=== PATIENT | female | born 1975 | race Caucasian/White ===

== ENCOUNTER 2019-02-27 15:09 | Outpatient (CLI) | payer SELFPAY ==
[2019-02-27 15:58] LABS: HCT 45.5 % (36.0-46.0); HGB 15.6 g/dL (12.0-15.5); Mean Corp. HGB Concentration 34.3 g/dL (32.0-36.0); Mean Corpuscular Volume 87.5 fL (80-95); Mean Platelet Volume 10.3 fL (8.0-11.0); Platelet Count 311 x1000/uL (130-400); RBC Distribution Width 12.9 % (11.7-14.6); White Blood Cell Count 11.31 k/cumm (4.4-10.8)
[2019-02-27 16:41] LABS: ALT 21 U/L (14-59); AST 13 U/L (15-37); Albumin 3.7 g/dL (3.4-5.0); Alkaline Phosphatase 75 U/L (46-116); Anion Gap 6.1 mmol/L (3-11); BUN 19 mg/dL (7-18); Bilirubin, Total 0.5 mg/dL (0.2-1.0); CO2 33.9 mmol/L (21.0-32.0); CREATININE 0.69 mg/dL (0.55-1.02); Calcium 9.5 mg/dL (8.5-10.1); Calculated LDL 147 mg/dL; Chloride 97 mmol/L (98-107); Cholesterol 213 mg/dL (50-200); Glucose 109 mg/dL (70-100); HDL Cholesterol 50 mg/dL (40-60); Sodium 137 mmol/L (136-145); Total Protein 7.2 g/dL (6.4-8.2); Triglyceride 84 mg/dL (30-150)
== END 2019-02-27 15:29 ==
PROVIDERS: PCP Nurse Practitioner; Visit Provider Nurse Practitioner
DX: I10 Essential (primary) hypertension (principal)
CPT/HCPCS: 36415; 80053; 80061; 85027

== ENCOUNTER 2019-04-04 12:16 | Emergency (ER) | payer SELFPAY ==
[2019-04-04 12:21] VITALS: BP 122/92; PULSE 82; RESP 16; TEMP 36.2; O2SAT 99
--- NOTE | 2019-04-04 12:33 | DI.RAD_ITS ---
EXAM: XR HAND LT COMPLETE CLINICAL HISTORY: left posterior hand pain TECHNIQUE: COMPARISON: LEFT HAND COMPLETE from 10/11/2017 FINDINGS: Three views were obtained. No bony or soft tissue abnormality seen. IMPRESSION:
--- NOTE | 2019-04-04 12:33 | W.ED.GENAD ---
Discharge Plan Disposition Patient Disposition: HOME Condition: Stable Discharge Details Chief Complaint: Vascular Clinical Impression: Ganglion cyst, Raynaud phenomenon Primary Care Provider: Ai Curry ED Provider: Anthony Mike Home Meds and New Rx's Prescriptions: New amlodipine 5 mg tablet 5 mg PO DAILY PRN (Reason: cool hands/raynauds) Qty: 14 RF: 0 Continued esomeprazole magnesium [Nexium 24HR] 20 mg capsule,delayed release(DR/EC) 20 mg PO DAILY RF: 0 chlorthalidone 25 mg tablet 25 mg PO DAILY Qty: 90 RF: 3 buprenorphine-naloxone 12-3 mg film 1 film SL DAILY MDD 12mg Qty: 28 RF: 2 albuterol sulfate [Proventil HFA] 6.7 GM HFA aerosol inhaler 1 - 2 puff Inhalation Q6H PRN Qty: 1 RF: 12 lisinopril 40 mg tablet 40 mg PO DAILY Qty: 90 RF: 0 ibuprofen 400 mg Tablet 400 mg PO PRN PRNRF: 0 Discharge Instructions Instructions: Raynaud Disease (ED) Additional Instructions: follow up with your primary care provider within 1-2 weeks if symptoms continue if you have severe worsening pain or your hand becomes purple/blue return to the emergency department Medical Decision Making 44 yo female comes in with nontraumatic right posterior hand pain since yesterday without fevers, chills, rashes. She states she noticed a lump in posterior mid hand that was painful yesterday and continues today and felt her fingers were cold today in left hand so came here. She does have what feels to be a ganglion cyst in mid posterior hand that is not fluctuant or warm to touch and is about 1cm in diameter. All of her fingers are cool to touch with no skin changes, normal sensation and normal radial and ulnar pulses, suspect raynauds, given normal cap refill, no skin changes and normal radial and ulnar pulses doubt arterial occlusion and has no pain outside of the likely sebaceous cyst. Will xray to see if there are any visible bone deformities and also give a dose of a vasodilator to help with likely raynauds pt's xray unremarkable and hand now warm and still normal pulses. will d/c and advised f/u with pcp and return precautions given Differential Diagnosis Differential Diagnosis: raynauda, sebaceous cyst Imaging Data Radiologic Study: Attestation: I personally reviewed and interpreted this imaging study as follows: Imaging: X-Ray Radiologist's impression: no acute findings HPI General Mode of arrival: ambulatory. Date/Time Provider Initiated Documentation: 04/04/19 12:18. Limitations to Documentation: no limitations. Information obtained by: patient. History of Present Illness 44 year old F presents to the emergency department with the chief complaint of left hand pain, described as moderate, Patient reports no radiation. Patient started experiencing this day(s) (1) and it has been constant. No relieving factors improve symptom(s), No exacerbating factors reported . Patient notes no other symptoms.. Related Data Home Medications Medication Instructions Recorded Confirmed albuterol sulfate [Proventil HFA] 1 - 2 puff INHALATION Q6H PRN #1 05/24/17 04/04/19 inhaler esomeprazole magnesium 20 mg 20 mg PO DAILY 02/28/18 04/04/19 capsule,delayed release lisinopril 40 mg tablet 40 mg PO DAILY #90 tab-cap 01/31/19 04/04/19 buprenorphine 12 mg-naloxone 3 mg 1 film SL DAILY #28 each MDD 12mg 02/28/19 04/04/19 sublingual film chlorthalidone 25 mg tablet 25 mg PO DAILY #90 tab-cap 02/28/19 04/04/19 amlodipine 5 mg PO DAILY PRN #14 tab 04/04/19 ibuprofen 400 mg PO PRN PRN 04/04/19 04/04/19 Previous Rx's Medication Instructions Recorded albuterol sulfate [Proventil HFA] 1 - 2 puff INHALATION Q6H PRN #1 05/24/17 inhaler lisinopril 40 mg tablet 40 mg PO DAILY #90 tab-cap 01/31/19 buprenorphine 12 mg-naloxone 3 mg 1 film SL DAILY #28 each MDD 12mg 02/28/19 sublingual film chlorthalidone 25 mg tablet 25 mg PO DAILY #90 tab-cap 02/28/19 amlodipine 5 mg PO DAILY PRN #14 tab 04/04/19 Allergies Allergy/AdvReac Type Severity Reaction Status Date / Time No Known Allergies Allergy Verified 02/28/19 11:30 General Stated Complaint: Vascular JAMAL: 4 Review of Systems All systems reviewed & are unremarkable except as noted in HPI and below Constitutional Constitutional: Denies chills, Denies fever(s) and Denies weakness Cardiovascular Cardiovascular: Denies chest pain and Denies dyspnea Respiratory Respiratory: Denies dyspnea Gastrointestinal Gastrointestinal: Denies abdominal pain, Denies nausea and Denies vomiting Neurologic Neurologic: Denies weakness [facility] Social History Smoking/Tobacco Use Status: Current every day Quit status: considering quitting Alcohol Intake: never Drug use: Current Sobriety Household members: children Number of Children: 2 Communication Needs: None Current gender identity: female What type of physical activity do you participate in: none Seatbelt use: always 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 Working smoke detector in home: Yes Carbon monox detector in home: Yes Do you feel safe at home: Yes Do you feel safe in your relationship?: Yes Exam Const General: no acute distress Orientation: alert HENMT Head: normal to inspection Ears: external ears normal General nose exam: external nose normal Mouth: moist mucous membranes Eyes General: appearance normal, both eyes and all related structures Neck Neck: normal visual inspection Resp Effort & Inspection: normal respiratory effort and able to speak in complete sentences Cardio Rate: regular rate Skin General skin exam: no rashes or lesions noted Neuro General: alert and oriented x3 Extrem General: full ROM and normal capillary refill Psych Mental Status: mental status grossly normal Course Vital Signs Vital signs: Vital Signs Temperature 36.2 C L 04/04/19 12:21 Pulse 82 04/04/19 12:21 Respiratory Rate 16 04/04/19 12:21 Blood Pressure 122/92 H 04/04/19 12:21 Pulse Oximetry 99 04/04/19 12:21 Temperature 36.2 C L 04/04/19 12:21 Temperature Source Temporal Artery Scan 04/04/19 12:21 Pulse 82 04/04/19 12:21 Respiratory Rate 16 04/04/19 12:21 Respiratory Effort 04/04/19 12:28 Blood Pressure 122/92 H 04/04/19 12:21 Blood Pressure Position Sitting 04/04/19 12:21 Pulse Oximetry 99 04/04/19 12:21 Oxygen Delivery Method Room Air 04/04/19 12:21 Oxygen Flow Rate 0 04/04/19 12:21
[2019-04-04] MEDS: amLODIPine 5 MG TAB PO (12:39)
== END 2019-04-04 13:24 | disposition home or self-care (01) ==
PROVIDERS: Emergency Provider Emergency Medicine; PCP Nurse Practitioner
DX: M67.441 Ganglion, right hand (principal); I73.00 Raynaud's syndrome without gangrene; I10 Essential (primary) hypertension
CPT/HCPCS: 99283; 73130

== ENCOUNTER 2020-01-16 01:02 | Outpatient (CLI) | payer SELFPAY ==
--- NOTE | 2020-01-16 11:43 | DI.RAD_ITS ---
EXAM: XR CHEST 2V PA LATERAL CLINICAL HISTORY: Fever, dyspnea, productive cough,UPPER RESP DISEASE,J39.9 TECHNIQUE: 2D digital imaging was performed. COMPARISON: No exams were available for comparison FINDINGS: The heart size is normal. There are patchy increased densities in the right middle lobe consistent w ith pneumonia. The remainder of the lung mccullough are clear. No effusion is seen. IMPRESSION: Right middle lobe pneumonia.
== END 2020-01-16 01:22 ==
PROVIDERS: PCP Nurse Practitioner; Visit Provider Family Medicine
DX: J18.9 Pneumonia, unspecified organism (principal); J39.9 Disease of upper respiratory tract, unspecified
CPT/HCPCS: 71046

== ENCOUNTER 2020-01-18 07:43 | Outpatient (CLI) | payer SELFPAY ==
[2020-01-20 23:06] LABS: Patient Race White; SARS-CoV-2 RNA Undetected (Undetected); SARS-CoV-2 Specimen Source Nasopharynx
== END 2020-01-18 08:03 ==
PROVIDERS: PCP Nurse Practitioner; Visit Provider Family Medicine
DX: Z11.59 Encounter for screening for other viral diseases (principal)
CPT/HCPCS: U0003

== ENCOUNTER 2020-09-17 03:08 | Outpatient (CLI) | payer SELFPAY ==
[2020-09-17 12:11] LABS: HCT 39.1 % (36.0-46.0); HGB 12.8 g/dL (11.2-15.7); MCH 30.5 pg (27.0-33.0); MCHC 32.7 % (32.0-36.0); MCV 93.1 fL (80-95); MPV 9.7 fL (8.0-11.0); Platelet Count 318 10^3/uL (130-400); RDW 13.9 % (11.7-14.6); RDW-SD 46.2 fL; WBC 7.35 10^3/uL (4.4-10.8)
[2020-09-17 13:36] LABS: ALT 67 U/L (14-59); AST 80 U/L (15-37); Albumin 3.3 g/dL (3.4-5.0); Alkaline Phosphatase 77 U/L (46-116); Anion Gap 7.7 mmol/L (3-11); BUN 5 mg/dL (7-18); Bilirubin, Total 0.7 mg/dL (0.2-1.0); CO2 31.3 mmol/L (21.0-32.0); CREATININE 0.9 mg/dL (0.55-1.02); Calcium 9.2 mg/dL (8.5-10.1); Calculated LDL 139 mg/dL (<100); Chloride 101 mmol/L (98-107); Cholesterol 211 mg/dL (<200); Ferritin 29 ng/mL (8-252); Glucose 121 mg/dL (74-106); HDL Cholesterol 48 mg/dL (40-60); Sodium 140 mmol/L (136-145); Total Protein 6.8 g/dL (6.4-8.2); Triglyceride 120 mg/dL (<150); Vitamin B12 656 pg/mL (193-986)
== END 2020-09-17 03:09 | disposition home or self-care (01) ==
PROVIDERS: PCP Nurse Practitioner; Visit Provider Nurse Practitioner
DX: I10 Essential (primary) hypertension (principal); R53.83 Other fatigue; R63.5 Abnormal weight gain
CPT/HCPCS: 36415; 80053; 80061; 85027; 82607; 82728; 84443

== ENCOUNTER 2021-02-18 14:31 | Emergency (ER) | payer SELFPAY ==
[2021-02-18] VITALS (22 sets, daily range): BP systolic 149–180; BP diastolic 95–109; PULSE 75–91; RESP 1–24; TEMP 36.7–37.3; O2SAT 82–99
--- NOTE | 2021-02-18 15:15 | RT.EKG_ITS ---
APPROVED REPORT Exam: Resting ECG Reason for Exam: shortness of breath Patient Location: E HR:75 bpm ECG Measurements Heart Rate 75 AXIS WY 176 P -12 QRSd 81 QRS 18 QT 461 T 56 QTc 517 Conclusion Sinus rhythm...normal P axis, V-rate 60- 99 Prolonged QT interval...QTc >510mS
--- NOTE | 2021-02-18 15:17 | W.ED.GENAD ---
Discharge Plan Disposition Patient Disposition: HOME Condition: Stable Discharge Details Clinical Impression: Swelling, Shortness of breath Primary Care Provider: Ai Curry ED Provider: Anthony Mike Home Meds and New Rx's Prescriptions: New prednisone 20 mg tablet 60 mg PO DAILY 4 Days Qty: 12 RF: 0 furosemide [Lasix] 20 mg tablet 20 mg PO DAILY Qty: 14 RF: 0 Continued esomeprazole magnesium [Nexium 24HR] 20 mg capsule,delayed release(DR/EC) 20 mg PO DAILY RF: 0 albuterol sulfate [Proventil HFA] 90 mcg/actuation HFA aerosol inhaler 1 - 2 puff Inhalation Q6H PRN Qty: 1 RF: 12 lisinopril 40 mg tablet 40 mg PO DAILY Qty: 90 RF: 3 fluoxetine 20 mg capsule 20 mg PO DAILY Qty: 90 RF: 3 metformin 500 mg tablet extended release 24hr 1,000 mg PO DAILY Qty: 60 RF: 3 buprenorphine-naloxone 12-3 mg film 1 film SL DAILY MDD 12mg Qty: 28 RF: 2 chlorthalidone 25 mg tablet 25 mg PO DAILY Qty: 90 RF: 3 ibuprofen 400 mg Tablet 400 mg PO PRN PRNRF: 0 Discharge Instructions Instructions: Hypokalemia (ED), COPD (Chronic Obstructive Pulmonary Disease) (ED) Additional Instructions: Your blood work showed a mild low potassium otherwise no new concerning findings. 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 She denies chest pain, headaches, cough, n/v, abdominal pain, denies any new medications. She arrives hypoxic in the 80's on room air which is new for her, 98% on nasal cannula. She has diffuse wheezing in both lungs on both sides, no abdominal tenderness. She has pitting edema of the hands, face and lower legs, no calf tenderness. Given presentation concern for possible acute renal failure, chf, and possible nephrotic syndrome, will obtain labs and cxr. Her lung exam could be due to pulmonary edema but given smoking history will trial neb and steroids and reassess. No chest pain/pressure or pleuritic pain so doubt pe or acs. labs with mild hypokalemia, oral potassium ordered. Still remains hypoxic, given this feel cta for pe to rule out pe indicated and has normal renal function and reassuring urine protein to creatinine ratiounlikely nephrotic syndrome and no proteinuria to suggest gluomerulonephritis pt now off oxygen and is in the mid 90's, no acute findings on cta, has elevated right hemidiaphragm and some atelectasis. She feels significantly better and lung exam only has mild apical wheezing bilaterally. Given reassuring labs and imaging and now not requiring o2 feel she is stable for outpatient management. Will d/c home and start prednisone and have her f/u with pcp, return precautions given. Will also start her on low dose lasix to help with her extremity edema pt was also advised to have BP rechecked with pcp as was mildly elevated here, 150/70 on last check when I was reviewing plan with her Differential Diagnosis Differential Diagnosis: nephrotic syndrome, chf, kourtney Lab Data Lab results reviewed: Yes I reviewed the patient's lab results. ECG Data Attestation: I personally reviewed and interpreted this ECG (s) as follows: Prior ECG tracings: not available for review Interpretation: sinus rhythm, rate of 75, no acute st t wave ischemic findings HPI General Mode of arrival: ambulatory. Date/Time Provider Initiated Documentation: 02/18/21 14:53. Limitations to Documentation: no limitations. Information obtained by: patient. History of Present Illness 45 year old F presents to the emergency department with the chief complaint of swelling of hands and feet, described as moderate, Patient reports no radiation. and it has been constant. No relieving factors improve symptom(s), No exacerbating factors reported . Patient notes shortness of breath and weakness. Patient did receive the following treatments prior to arrival, none Related Data Home Medications Medication Instructions Recorded Confirmed esomeprazole magnesium 20 mg 20 mg PO DAILY 02/28/18 02/18/21 capsule,delayed release ibuprofen 400 mg PO PRN PRN 04/04/19 02/18/21 albuterol sulfate 90 mcg/actuation 1 - 2 puff INHALATION Q6H PRN #1 05/23/19 02/18/21 aerosol inhaler inhaler chlorthalidone 25 mg tablet 25 mg PO DAILY #90 tab-cap 03/24/20 02/18/21 lisinopril 40 mg tablet 40 mg PO DAILY #90 tab-cap 04/21/20 02/18/21 buprenorphine 12 mg-naloxone 3 mg 1 film SL DAILY #28 each MDD 12mg 12/02/20 02/18/21 sublingual film fluoxetine 20 mg capsule 20 mg PO DAILY #90 cap 12/02/20 02/18/21 metformin 500 mg tablet,extended 1,000 mg PO DAILY #60 tab 12/02/20 02/18/21 release 24hr furosemide [Lasix] 20 mg PO DAILY #14 tab 02/18/21 prednisone 60 mg PO DAILY 4 Days #12 tab 02/18/21 Previous Rx's Medication Instructions Recorded albuterol sulfate 90 mcg/actuation 1 - 2 puff INHALATION Q6H PRN #1 05/23/19 aerosol inhaler inhaler chlorthalidone 25 mg tablet 25 mg PO DAILY #90 tab-cap 03/24/20 lisinopril 40 mg tablet 40 mg PO DAILY #90 tab-cap 04/21/20 buprenorphine 12 mg-naloxone 3 mg 1 film SL DAILY #28 each MDD 12mg 12/02/20 sublingual film fluoxetine 20 mg capsule 20 mg PO DAILY #90 cap 12/02/20 metformin 500 mg tablet,extended 1,000 mg PO DAILY #60 tab 12/02/20 release 24hr furosemide [Lasix] 20 mg PO DAILY #14 tab 02/18/21 prednisone 60 mg PO DAILY 4 Days #12 tab 02/18/21 Allergies Allergy/AdvReac Type Severity Reaction Status Date / Time No Known Allergies Allergy Verified 02/18/21 16:41 General Stated Complaint: GenMedical JAMAL: 3 Review of Systems All systems reviewed & are unremarkable except as noted in HPI and below Constitutional Constitutional: Denies chills, Denies fever(s) and Denies weakness Cardiovascular Cardiovascular: Denies chest pain Respiratory Respiratory: Denies cough Gastrointestinal Gastrointestinal: Denies abdominal pain, Denies nausea and Denies vomiting Neurologic Neurologic: Denies weakness Psychiatric Psychiatric: Denies depression [facility] Medical History (Updated 02/18/21 @ 19:09 by Anthony Mike MD) Fatigue HTN (hypertension), benign Menstrual irregularity 08/2013 Total testosterone 83 (14-76) Free testosterone0.1-1.3, nl SHBG. Nl prolactin Moderate bipolar I disorder, current or most recent episode depressed, in partial remission (07/12/12) Surgical History Tubal ligation, 2000 Family History Mother Mental disorder Depression, controlled with Prozac Daughter Epilepsy Social History Smoking/Tobacco Use Status: Current every day Tobacco Type: cigarettes Quit status: considering quitting Smoking risk assessment performed?: Yes Alcohol Intake: current Alcohol Intake frequency: a few times a month Alcohol type: beer Drug use: Never Substance use type: does not use Household members: children Number of Children: 2 Communication Needs: None Current gender identity: female What type of physical activity do you participate in: none Seatbelt use: always 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 Working smoke detector in home: Yes Carbon monox detector in home: Yes Do you feel safe at home: Yes Do you feel safe in your relationship?: Yes Exam Const General: no acute distress Orientation: alert HENMT Head: normal to inspection Ears: external ears normal General nose exam: external nose normal Mouth: moist mucous membranes Eyes General: appearance normal, both eyes and all related structures Neck Neck: normal visual inspection Resp Effort & Inspection: audible wheezes Cardio Rate: regular rate Skin General skin exam: no rashes or lesions noted Neuro General: patient alert and patient oriented x3 Extrem General: full ROM Psych Mental Status: mental status grossly normal Course Vital Signs Vital signs: Vital Signs Temperature 37.3 C 02/18/21 14:58 Pulse 91 H 02/18/21 14:58 Blood Pressure 149/95 H 02/18/21 14:58 Pulse Oximetry 82 L 02/18/21 14:58 Temperature 37.3 C 02/18/21 14:58 Temperature Source Temporal Artery Scan 02/18/21 14:58 Pulse 91 H 02/18/21 14:58 Blood Pressure 149/95 H 02/18/21 14:58 Pulse Oximetry 82 L 02/18/21 14:58 Oxygen Delivery Method Room Air 02/18/21 14:58 Oxygen Flow Rate 0 10/13/21 14:58 Pain Level 9 02/18/21 14:58
[2021-02-18 16:02] LABS: Source Nasal/Nares
[2021-02-18] MEDS: methylPREDNISolone SUCC 125 MG VIAL IVP (16:09)
[2021-02-18] MEDS: Normal Saline Flush 10 ML SYR IVP ×2 (16:09→17:40)
[2021-02-18] MEDS: Albuterol/Ipratropium 3 ML UPD VIAL UPD ×2 (16:09→17:50)
[2021-02-18 16:34] LABS: BE (Venous) 9 mmol/L (-2-3); HCO3 (Venous) 34 mmol/L (23-28); O2 Sat (Venous) 67 %; TCO2 (Venous) 32 mmol/L (24-29); pCO2 (Venous) 58 mmHg (41-51); pH (Venous) 7.38 (7.31-7.41); pO2 (Venous) 36 mmHg
[2021-02-18 16:39] LABS: Abs Immature Grans 0.02 10^3/uL (0.0-0.06); Absolute Basophil Count 0.05 10^3/uL (0.0-0.2); Absolute Eosinophil Count 0.04 10^3/uL (0.0-0.7); Absolute Lymphocyte Count 1.46 10^3/uL (1.2-3.4); Absolute Monocyte Count 0.62 10^3/uL (0.1-0.8); Absolute Neutrophil Count 5.12 10^3/uL (1.2-6.7); Basophils % 0.7; Eosinophils % 0.5; HGB 11.2 g/dL (11.2-15.7); Immature Grans % 0.3; MCH 28.6 pg (27.0-33.0); MCV 89.5 fL (80-95); MPV 9.9 fL (8.0-11.0); Monocytes % 8.5; Nucleated RBC 0 %; Platelet Count 249 10^3/uL (130-400); RBC 3.91 10^6/uL (3.93-5.22); RDW 16.7 % (11.7-14.6); RDW-SD 54.1 fL; WBC 7.31 10^3/uL (4.4-10.8)
[2021-02-18 16:53] LABS: Bilirubin Negative (Negative); Blood Trace-intact (Negative); Clarity Clear (Clear); Glucose Negative (Negative); Ketones Negative (Negative); Leukocyte Esterase Negative (Negative); Nitrite Negative (Negative); Specific Gravity 1.015 (1.005-1.025)
[2021-02-18 16:54] LABS: COVID-19 PCR Negative (Negative)
[2021-02-18 16:59] LABS: ALT 57 U/L (14-59); AST 125 U/L (15-37); Albumin 2.6 g/dL (3.4-5.0); Alkaline Phosphatase 116 U/L (46-116); Anion Gap 6.8 mmol/L (3-11); BUN 1 mg/dL (7-18); Bilirubin, Total 0.3 mg/dL (0.2-1.0); CO2 33.2 mmol/L (21.0-32.0); CREATININE 0.6 mg/dL (0.55-1.02); Calcium 8.4 mg/dL (8.5-10.1); Chloride 99 mmol/L (98-107); Glucose 106 mg/dL (74-106); Magnesium 1.8 mg/dL (1.8-2.4); NT-proBNP 245 pg/mL (<300); Potassium 3.1 mmol/L (3.5-5.1); Sodium 139 mmol/L (136-145); TSH (W/Ref FT4) 2.38 uIU/mL (0.36-3.74); Total Protein 6.5 g/dL (6.4-8.2); Troponin I < 0.05 ng/mL (<0.06)
--- NOTE | 2021-02-18 17:00 | DI.CT_ITS ---
Exam(s) CT CHEST PE CTA EXAM: CT CHEST PE CTA CLINICAL HISTORY: hypoxia. TECHNIQUE: Imaging Protocol: Axial CT angiography was performed with multi-slice acquisition and mu lti-planar and/or 3D reconstructions. CONTRAST MATERIAL: Intravenous: Omnipaque 350 Contrast volume:structured data in ml COMPARISON: CR XR CHEST 2V PA LATERAL from 01/16/2020 CR XR CHEST 2V PA LATERAL from 01/16/2020 FINDINGS: CT angiography of the chest was performed with intravenous infusion of 85 cc of Omnipaque 350. There are areas of apparent atelectasis involving right middle lobe, right lower lobe, and left upper lobe. There are areas of apparent consolidation involving right and left lower lobe posteriorly. T here are trace pleural effusions. There is marked elevation of the diaphragm on the right. This was not present on prior chest radiograph of January 16, 2020. If. Tracheobronchial tree appears inta ct. No evidence of pulmonary embolic disease. Thoracic aorta is of normal diameter, no thoracic aortic an eurysm or dissection, major branch vessels appear intact. No mediastinal or hilar adenopathy. Images obtained through the upper abdomen show probable hepatic steatosis in addition to the aforemen tioned elevation of right hemidiaphragm. Visualized portions of pancreas and screw spleen grossly un remarkable. IMPRESSION: No evidence of pulmonary embolic disease a. Marked elevation of the diaphragm on the right is noted a long with areas of bilateral areas of atelectasis and apparent bibasilar consolidation. RADIATION DOSE DELIVERED: 606.89mGy.cm Total DLP 606.89mGy.cm Total DLP 16.78mGy CTDIvol DATA REPOSITORY: All CT scans at this facility are submitted to the National Radiology Data Registry (NRDR) Dose Index Registry (DIR) with the [employer] (A[employer]). RADIATION OPTIMIZATION: All CT scans at this facility use at least one of these dose optimization te chniques: automated exposure control; mA and/or kV adjustment per patient size (includes targeted exa ms where dose is matched to clinical indication); or iterative reconstruction.
[2021-02-18 17:10] LABS: Bacteria Negative HPF (Negative); C & S Indicated? No; Casts Negative LPF (Negative); Crystals Negative HPF (Negative); Epithelial Cells Few HPF (Negative); Mucus Negative (Negative); Other Cells Negative (Negative); RBC 0-2 HPF (0-2); WBC Negative HPF (0-5)
[2021-02-18] MEDS: Potassium Chloride 20 MEQ TABCR 40 MEQ PO (17:10)
[2021-02-18 17:23] LABS: PROTEIN 10.6 mg/dL
[2021-02-18 17:25] LABS: COMMENT (LAB VIEW ONLY) 77.55 mg/dL; Prot/Crea Ur Ratio 0.13
[2021-02-18] MEDS: Normal Saline - Diluent 50 ML VIAL IV (17:39)
[2021-02-18] MEDS: Omnipaque 350 MG/ML 100 ML BTL IJ (17:39)
--- NOTE | 2021-02-18 18:37 | DI.VRAD_ITS ---
PROCEDURE INFORMATION: Exam: CTA Chest With Contrast Exam date and time: 02/18/2021 5:03 PM Age: 45 years old Clinical indication: Other: Hypoxia TECHNIQUE: Imaging protocol: Computed tomographic angiography of the chest with contrast. 3D rendering (Not supervised by radiologist): MIP and/or 3D reconstructed images were created by the technologist. Contrast material: OMNPIAQUE 350; Contrast volume: 100 ml; Contrast route: INTRAVENOUS (IV); COMPARISON: CR XR CHEST 2V PA LATERAL 01/16/2020 11:31 AM FINDINGS: Pulmonary arteries: Unremarkable. No pulmonary emboli. Aorta: Unremarkable. No aortic aneurysm. No aortic dissection. Lungs: There is scarring and atelectasis in the right middle lobe. No consolidation. No masses. Pleural spaces: No pneumothorax. Trace left pleural effusion. Heart: Unremarkable. No cardiomegaly. No pericardial effusion. Lymph nodes: Unremarkable. No enlarged lymph nodes. Diaphragm: There is interval marked elevation of the right hemidiaphragm. Bones/joints: Unremarkable. No acute fracture. Soft tissues: Unremarkable. IMPRESSION: 1. No evidence for pulmonary embolism. 2. Interval marked elevation of the right hemidiaphragm with right middle lobe atelectasis. Dictated and Authenticated by: Lb Reina MD. Ordering:MARV Cruz MD
[2021-02-18 18:39] LABS: Troponin I < 0.05 ng/mL (<0.06)
[2021-02-18] MEDS: Albuterol HFA 8 GM 60 PUFF INH IH (19:22)
[2021-02-18] MEDS: Inhaler, Assist Device 1 EACH MC (19:23)
--- NOTE | 2021-02-19 05:05 | NUR.NOTE ---
referral faxed to [facility]-Ai Curry to f/u within a week. Likely COPD. Nursing Note:
--- NOTE | 2021-02-19 07:28 | ED.FU.B_ITS ---
Date of service: 02/19/21 Time of Service: 07:28 Follow Up Plan: Dr. Beard contacted me from radiology this morning and upon his assessment of the CT angiogram he does feel that there is some concern for consolidation rather than just some nonspecific fluid. Concerned that the patient may have potential pneumonia. I did call the patient at her phone number [phone]. Unfortunately her mailbox is full, and she did not excelsior picker. I will pass the message along to my colleague Dr. Genoveva Johnson this morning as well, and recommend repeat attempted phone calls for contact.
--- NOTE | 2021-02-19 16:21 | W.ED.FU ---
Date of service: 02/19/21 Time of Service: 16:22 Follow Up Plan: Attempt to call patient regarding possible consolidation bilaterally on CT chest. No answer mailbox is full. Will send an antibiotic doxycycline 100 mg twice daily to the pharmacy and place patient on care management follow-up list to follow-up with PCP in the next 2 to 3 days if possible..
--- NOTE | 2021-02-22 16:53 | ED.FU.B_ITS ---
Date of service: 02/22/21 Time of Service: 16:53 Follow Up Plan: Call made to Celine who states she is taking care of Mary. I instructed to have her have radiation call us back here in the ER to discussed chest CT results and antibiotic prescription which was sent to the pharmacy on file due to [facility] not being on the HIPAA contact list. She verbalized understanding states that Mary will call us back in approximately 1 hour. 1918: Spoke with patient on phone who reports she has been feeling poorly, discussed CT results of possible pneumonia and instructed to miner pick Antibiotic at [facility]. She verbalized understanding and will pick it up first thing in am. Discussed close follow up with PCP and strict return instructions.
== END 2021-02-18 19:30 | disposition home or self-care (01) ==
PROVIDERS: Emergency Provider Emergency Medicine; PCP Nurse Practitioner
DX: R09.02 Hypoxemia (principal); J18.8 Other pneumonia, unspecified organism; E87.6 Hypokalemia; R60.0 Localized edema; J98.11 Atelectasis; Z20.822 Contact with and (suspected) exposure to COVID-19; Z03.818 Encounter for observation for suspected exposure to other biological agents ruled out; I10 Essential (primary) hypertension
CPT/HCPCS: 36415; 71275; 80053; 82805; 87040; 87635; 93005; 94640; 96374; 99285; 81003; 81015; 82565; 83735; 83880; 84156; 84443; 84484; 85025; 93010; J2930; J3490; J7620

== ENCOUNTER 2021-06-22 10:39 | Emergency (ER) | payer MEDICAID, SELFPAY ==
[2021-06-22] VITALS (14 sets, daily range): BP systolic 95–111; BP diastolic 56–77; PULSE 79–98; RESP 11–29; TEMP 36.6–36.7; O2SAT 85–98
--- NOTE | 2021-06-22 11:30 | DI.CT_ITS ---
Exam(s) CT ABDOMEN PELVIS W EXAM: CT ABDOMEN PELVIS W CLINICAL HISTORY: abd pain. TECHNIQUE: Imaging Protocol: Axial computed tomography images with coronal and sagittal reformatted images were created and reviewed CONTRAST MATERIAL: Intravenous: Omnipaque 100cc Oral: None COMPARISON: CT CT CHEST PE CTA from 02/18/2021 FINDINGS: VISUALIZED LUNG BASES: There is atelectasis in the right lung base adjacent to elevated right hemidia phragm.. There are no pleural effusions. ABDOMEN: There is no ascites. However, there is symmetrical anasarca evident. LIVER: Liver is hypodense implying steatosis and liver appears enlarged. There are, however, no disc rete focal hepatic lesions identified and no dilatation of intrahepatic ducts. GALLBLADDER/BILIARY: No obvious gallbladder pathology. CBD is not dilated. PANCREAS: No evidence of pancreatic mass nor dilatation of the pancreatic duct. SPLEEN: Spleen is not enlarged. No obvious intrasplenic lesions. Splenic and portal veins are paten t. ADRENALS: There are no significant adrenal masses. KIDNEYS:No cysts evident. No solid renal masses. No calculi nor hydronephrosis.. ABDOMINAL AORTA: Abdominal aorta is not enlarged. LYMPH NODES:There are few small para-aortic lymph nodes, all less than 1 cm. No gross lymphadenopath y. No adenopathy around the aortic bifurcation nor along the iliac chains. There is no inguinal tao nopathy. ABDOMINAL WALL: No evidence of significant anterior abdominal wall nor inguinal hernia. GI: There is no evidence of bowel obstruction, free air, nor abscess. PELVIS: GI: No evidence of appendicitis.No evidence of sigmoid diverticulitis. LYMPH NODES: There is no intrapelvic nor inguinal adenopathy. REPRODUCTIVE: There are multiple calcified uterine fibroids. One of the largest calcifications appea rs relatively centrally in the uterus. This is probably a large sub serosal fibroid URINARY BLADDER: No calculi nor obvious masses evident OSSEOUS: No significant osseous lesions. IMPRESSION: 1. Compared to the prior CT scan of 02/18/2021 there is hepatic steatosis and hepatomegaly. No discr ete focal hepatic lesions. 2. There is symmetrical anasarca. No ascites 3. Small para-aortic lymph nodes are noted, all measuring less than 1 cm. No gross lymphadenopathy. No splenomegaly. 4. There are multiple calcified uterine fibroids. RADIATION DOSE DELIVERED: 1,819.89mGy.cm Total DLP DATA REPOSITORY: All CT scans at this facility are submitted to the National Radiology Data Registry (NRDR) Dose Index Registry (DIR) with the [employer] (ACR). RADIATION OPTIMIZATION: All CT scans at this facility use at least one of these dose optimization te chniques: automated exposure control; mA and/or kV adjustment per patient size (includes targeted exa ms where dose is matched to clinical indication); or iterative reconstruction.
[2021-06-22 11:49] LABS: Bilirubin Negative (Negative); Blood Negative (Negative); Clarity Clear (Clear); Glucose Negative (Negative); Ketones Negative (Negative); Leukocyte Esterase Negative (Negative); Nitrite Negative (Negative); pH 7.5 (5-8)
[2021-06-22 11:58] LABS: Abs Immature Grans 0.06 10^3/uL (0.0-0.06); Absolute Basophil Count 0.05 10^3/uL (0.0-0.2); Absolute Eosinophil Count 0.08 10^3/uL (0.0-0.7); Absolute Monocyte Count 0.95 10^3/uL (0.1-0.8); Absolute Neutrophil Count 9.63 10^3/uL (1.2-6.7); Basophils % 0.4; Eosinophils % 0.6; HCT 36.7 % (36.0-46.0); HGB 11.8 g/dL (11.2-15.7); Immature Grans % 0.5; Lymphocytes % 14.7; MCH 29.5 pg (27.0-33.0); MCHC 32.2 % (32.0-36.0); MCV 91.8 fL (80-95); Monocytes % 7.5; Neutrophils % 76.3; Nucleated RBC 0 %; Platelet Count 394 10^3/uL (130-400); RDW 17.2 % (11.7-14.6); RDW-SD 58.4 fL; WBC 12.62 10^3/uL (4.4-10.8)
[2021-06-22 11:59] LABS: Absolute Lymphocyte Count 1.86 10^3/uL (1.2-3.4); Lactate 4.4 mmol/L (0.6-1.4)
--- NOTE | 2021-06-22 12:11 | ED.GENADUL_ITS ---
Discharge Plan Disposition Patient Disposition: OTHER Discharge Details Chief Complaint: Cellulitis Clinical Impression: Cellulitis, Anasarca Primary Care Provider: Ai Curry ED Provider: Niki Mendez Home Meds and New Rx's Prescriptions: No Action albuterol sulfate [Proventil HFA] 90 mcg/actuation HFA aerosol inhaler 1 - 2 puff Inhalation Q6H PRN Qty: 1 12RF Rx Instructions: dx: bronchospasm lisinopril 40 mg tablet 40 mg PO DAILY Qty: 90 3RF Rx Instructions: to control high blood pressure chlorthalidone 25 mg tablet 50 mg PO DAILY Qty: 180 3RF esomeprazole magnesium [Nexium 24HR] 20 mg capsule,delayed release(DR/EC) 20 mg PO DAILY Qty: 90 3RF metformin 500 mg tablet extended release 24hr 1,000 mg PO DAILY Qty: 60 3RF methylphenidate HCl 36 mg tablet extended release 24hr 36 mg PO DAILY MDD 36mg Qty: 28 0RF buprenorphine-naloxone 12-3 mg film 1 film SL DAILY MDD 12mg Qty: 28 2RF Rx Instructions: coupler today furosemide [Lasix] 20 mg tablet 20 mg PO DAILY Qty: 14 0RF ibuprofen 400 mg Tablet 400 mg PO PRN PRN0RF Discharge Data Discharge Date/Time-TO BE ENTERED AT DEPARTURE: 06/22/21 15:49 Medical Decision Making Mary Sher is a woman 46-year-old woman with a history of hypertension, bipolar disorder, asthma, [id number] diabetes alcohol use disorder presenting to emergency department with abdominal pain. Patient reports that for the past 2 weeks she has had redness and superficial pain of the bilateral lower aspect of her abdomen. Patient reports that this area is mostly sore, t frankie she has had some itching at times. Patient reports that for the past week she has had fevers up minimal pain in the bilateral upper quadrants and abdominal distention that is new. Patient also reports that she has chronic lower extremity edema that seems worse than usual. She denies any other pain, other rash, fever, vomiting, numbness, weakness. She reports baseline cough that she attributes to smoking that is unchanged. She reports that she seems to get more winded than usual when exerting herself, but does not feel short of breath at rest and is able to lie flat at night without issue. She reports that she has had some diarrhea over the past few days, no black or bloody stool. Patient reports that she used to drink very heavily but has cut down significantly over the past few months. Patient reports that she now drinks approximately 36 ounces of malt liquor at night, does not drink at all during the day. Denies recreational drug use. Physical exam shows patient well and nontoxic-appearing, mild upper abdominal tenderness palpation, positive abdominal distention, confluent erythema over the lower half of the abdomen that does not extend to the groin, 3+ edema bilateral lower extremities with abrasions that patient reports is secondary to bite/scratches from her kitten. Concern for possible liver failure, ascites, abdominal wall cellulitis, CHF, metabolic/lyte derangement, other. Exam/history at this time is not consistent with pulmonary embolism, DVT or acute vascular pathology. Plan for IV placement, screening labs, IV fluid hydration, CT abdomen/pelvis. Will monitor and reassess. Labs reviewed, potassium 2.9, lactate 4.4, WBC 12.62, albumin 2.5. CT shows anasarca, no other acute emergent intra-abdominal process. Unasyn intiated for cellulitis possibly 2/2 animal bite. 1330: [facility] refuse, no capacity 1332: [facility] to call back, at capacity 1350: [facility] refuses, at capacity 1352: [facility] at capacity, cannot accept 14:15 patient accepted to [facility], accepting physician Dr. Bazzi, awaiting bed assignment. Medical Records Medical records reviewed: Yes I reviewed the patient's medical records. Imaging Data Radiologic Study: Attestation: I personally reviewed and interpreted this imaging study as follows: Radiologist's impression: EXAM: ? CT ABDOMEN ? PELVIS W CLINICAL HISTORY: ? abd pain. ? TECHNIQUE:? Imaging Protocol: Axial computed tomography images with coronal and sagittal reformatted images were created and reviewed CONTRAST MATERIAL:? Intravenous: Omnipaque 100cc Oral: None COMPARISON:? CT CT CHEST PE CTA from 02/18/2021 FINDINGS: VISUALIZED LUNG BASES: There is atelectasis in the right lung base adjacent to elevated right hemidiaphragm..? There are no pleural effusions. ABDOMEN: There is no ascites.? However, there is symmetrical anasarca evident. LIVER: Liver is hypodense implying steatosis and liver appears enlarged.? There are, however, no discrete focal hepatic lesions identified and no dilatation of intrahepatic ducts.? GALLBLADDER/BILIARY: No obvious gallbladder pathology.? CBD is not dilated. PANCREAS: No evidence of pancreatic mass nor dilatation of the pancreatic duct.? SPLEEN: Spleen is not enlarged.? No obvious intrasplenic lesions.? Splenic and portal veins are patent. ADRENALS: There are no significant adrenal masses. KIDNEYS:No cysts evident.? No solid renal masses.? No calculi nor hydronephrosis.. ABDOMINAL AORTA: Abdominal aorta is not enlarged. LYMPH NODES:There are few small para-aortic lymph nodes, all less than 1 cm.? No gross lymphadenopathy.? No adenopathy around the aortic bifurcation nor along the iliac chains.? There is no inguinal adenopathy. ABDOMINAL WALL: No evidence of significant anterior abdominal wall nor inguinal hernia. GI: There is no evidence of bowel obstruction, free air, nor abscess. PELVIS:? GI: No evidence of appendicitis.No evidence of sigmoid diverticulitis. LYMPH NODES: There is no intrapelvic nor inguinal adenopathy. REPRODUCTIVE: There are multiple calcified uterine fibroids.? One of the largest calcifications appears relatively centrally in the uterus.? This is probably a large sub serosal fibroid URINARY BLADDER: No calculi nor obvious masses evident OSSEOUS: No significant osseous lesions. IMPRESSION: 1. Compared to the prior CT scan of 02/18/2021 there is hepatic steatosis and hepatomegaly.? No discrete focal hepatic lesions. 2. There is symmetrical anasarca.? No ascites 3. Small para-aortic lymph nodes are noted, all measuring less than 1 cm.? No gross lymphadenopathy.? No splenomegaly. 4. There are multiple calcified uterine fibroids. Lab Data Lab results reviewed: Yes I reviewed the patient's lab results. Labs: 06/22/21 14:00 Blood Blood Culture - Preliminary NO GROWTH 72 HOURS 06/22/21 13:26 Blood Blood Culture - Preliminary NO GROWTH 72 HOURS Laboratory Tests Range/Units 06/22/21 06/22/21 06/22/21 11:40 11:50 11:50 WBC (4.4-10.8) 10^3/uL RBC (3.93-5.22) 10^6/uL Hgb (11.2-15.7) g/dL Hct (36.0-46.0) % MCV (80-95) fL MCH (27.0-33.0) pg MCHC (32.0-36.0) % RDW (11.7-14.6) % Plt Count (130-400) 10^3/uL MPV (8.0-11.0) fL Immature Gran % Neutrophils % Lymphocytes % Monocytes % Eosinophils % Basophils % Nucleated RBC % % Absolute Neutrophils (1.2-6.7) 10^3/uL Absolute Lymphocytes (1.2-3.4) 10^3/uL Absolute Monocytes (0.1-0.8) 10^3/uL Absolute Eosinophils (0.0-0.7) 10^3/uL Absolute Basophils (0.0-0.2) 10^3/uL VBG Lactate (0.6-1.4) mmol/L 4.4 H* Sodium (136-145) mmol/L 133 L Potassium (3.5-5.1) mmol/L 2.9 L Chloride (98-107) mmol/L 93 L Carbon Dioxide (21.0-32.0) mmol/L 33.5 H Anion Gap (3-11) mmol/L 6.5 BUN (7-18) mg/dL 4 L Creatinine (0.55-1.02) mg/dL 0.7 Estimated GFR/1.73 m2 (mL/min/1.73m2) >= 60.00 Glucose (74-106) mg/dL 101 Calcium (8.5-10.1) mg/dL 8.8 Magnesium (1.8-2.4) mg/dL 1.8 Total Bilirubin (0.2-1.0) mg/dL 0.6 AST (15-37) U/L 111 H ALT (14-59) U/L 33 Alkaline Phosphatase (46-116) U/L 230 H NT-Pro-B Natriuret Pep (<300) pg/mL 187 Total Protein (6.4-8.2) g/dL 7.3 Albumin (3.4-5.0) g/dL 2.5 L Lipase (73-393) U/L 25 TSH (0.36-3.74) uIU/mL 5.43 H Free T4 (0.76-1.46) ng/dL 1.31 Urine Color (Yellow) Yellow Urine Clarity (Clear) Clear Urine pH (5-8) 7.5 Ur Specific [place] (1.005-1.025) 1.020 Urine Protein (Negative) mg/dL Negative Urine Ketones (Negative) mg/dL Negative Urine Blood (Negative) Negative Urine Nitrite (Negative) Negative Urine Bilirubin (Negative) Negative Urine Urobilinogen (Up TO 0.2) EU/dL 1.0 H Ur Leukocyte Esterase (Negative) Negative Urine Glucose (Negative) mg/dL Negative COVID-19 Source SARS-CoV-2 (PCR) (Negative) Range/Units 06/22/21 06/22/21 11:50 14:05 WBC (4.4-10.8) 10^3/uL 12.62 H RBC (3.93-5.22) 10^6/uL 4.00 Hgb (11.2-15.7) g/dL 11.8 Hct (36.0-46.0) % 36.7 MCV (80-95) fL 91.8 MCH (27.0-33.0) pg 29.5 MCHC (32.0-36.0) % 32.2 RDW (11.7-14.6) % 17.2 H Plt Count (130-400) 10^3/uL 394 MPV (8.0-11.0) fL 9.0 Immature Gran % 0.5 Neutrophils % 76.3 Lymphocytes % 14.7 Monocytes % 7.5 Eosinophils % 0.6 Basophils % 0.4 Nucleated RBC % % 0 Absolute Neutrophils (1.2-6.7) 10^3/uL 9.63 H Absolute Lymphocytes (1.2-3.4) 10^3/uL 1.86 Absolute Monocytes (0.1-0.8) 10^3/uL 0.95 H Absolute Eosinophils (0.0-0.7) 10^3/uL 0.08 Absolute Basophils (0.0-0.2) 10^3/uL 0.05 VBG Lactate (0.6-1.4) mmol/L Sodium (136-145) mmol/L Potassium (3.5-5.1) mmol/L Chloride (98-107) mmol/L Carbon Dioxide (21.0-32.0) mmol/L Anion Gap (3-11) mmol/L BUN (7-18) mg/dL Creatinine (0.55-1.02) mg/dL Estimated GFR/1.73 m2 (mL/min/1.73m2) Glucose (74-106) mg/dL Calcium (8.5-10.1) mg/dL Magnesium (1.8-2.4) mg/dL Total Bilirubin (0.2-1.0) mg/dL AST (15-37) U/L ALT (14-59) U/L Alkaline Phosphatase (46-116) U/L NT-Pro-B Natriuret Pep (<300) pg/mL Total Protein (6.4-8.2) g/dL Albumin (3.4-5.0) g/dL Lipase (73-393) U/L TSH (0.36-3.74) uIU/mL Free T4 (0.76-1.46) ng/dL Urine Color (Yellow) Urine Clarity (Clear) Urine pH (5-8) Ur Specific [place] (1.005-1.025) Urine Protein (Negative) mg/dL Urine Ketones (Negative) mg/dL Urine Blood (Negative) Urine Nitrite (Negative) Urine Bilirubin (Negative) Urine Urobilinogen (Up TO 0.2) EU/dL Ur Leukocyte Esterase (Negative) Urine Glucose (Negative) mg/dL COVID-19 Source Nasal/Nares SARS-CoV-2 (PCR) (Negative) Negative HPI General Date/Time Provider Initiated Documentation: 06/22/21 11:04 . HPI Narrative: Mary Sher is a woman 46-year-old woman with a history of hypertension, bipolar disorder, asthma, puj-zfipvqp-[id number] diabetes alcohol use disorder presenting to emergency department with abdominal pain. Patient reports that for the past 2 weeks she has had redness and superficial pain of the bilateral lower aspect of her abdomen. Patient reports that this area is mostly sore, though she has had some itching at times. Patient reports that for the past week she has had fevers up minimal pain in the bilateral upper quadrants and abdominal distention that is new. Patient also reports that she has chronic lower extremity edema that seems worse than usual. She denies any other pain, other rash, fever, vomiting, numbness, weakness. She reports baseline cough that she attributes to smoking that is unchanged. She reports that she seems to get more winded than usual when exerting herself, but does not feel short of breath at rest and is able to lie flat at night without issue. She reports that she has had some diarrhea over the past few days, no black or bloody stool. Patient reports that she used to drink very heavily but has cut down significantly over the past few months. Patient reports that she now drinks approximately 36 ounces of malt liquor at night, does not drink at all during the day. Denies recreational drug use. Related Data Home Medications Medication Instructions Recorded Confirmed ibuprofen 400 mg tablet 400 mg PO PRN PRN 04/04/19 06/22/21 metformin 500 mg tablet,extended 1,000 mg PO DAILY #60 tab 12/02/20 06/22/21 release 24hr furosemide 20 mg tablet (Lasix) 20 mg PO DAILY #14 tab 02/18/21 06/22/21 albuterol sulfate 90 mcg/actuation 1 - 2 puff INHALATION Q6H PRN #1 02/25/21 06/22/21 aerosol inhaler (Proventil HFA) inhaler chlorthalidone 25 mg tablet 50 mg PO DAILY #180 tab-cap 02/25/21 06/22/21 lisinopril 40 mg tablet 40 mg PO DAILY #90 tab-cap 02/25/21 06/22/21 esomeprazole magnesium 20 mg 20 mg PO DAILY #90 cap 05/20/21 06/22/21 capsule,delayed release (Nexium 24HR) buprenorphine 12 mg-naloxone 3 mg 1 film SL DAILY #28 each MDD 12mg 06/17/21 06/22/21 sublingual film methylphenidate HCl 36 mg 36 mg PO DAILY #28 tab MDD 36mg 06/17/21 06/22/21 tablet,extended release 24 hr Previous Rx's Medication Instructions Recorded metformin 500 mg tablet,extended 1,000 mg PO DAILY #60 tab 12/02/20 release 24hr furosemide 20 mg tablet (Lasix) 20 mg PO DAILY #14 tab 02/18/21 albuterol sulfate 90 mcg/actuation 1 - 2 puff INHALATION Q6H PRN #1 02/25/21 aerosol inhaler (Proventil HFA) inhaler chlorthalidone 25 mg tablet 50 mg PO DAILY #180 tab-cap 02/25/21 lisinopril 40 mg tablet 40 mg PO DAILY #90 tab-cap 02/25/21 esomeprazole magnesium 20 mg 20 mg PO DAILY #90 cap 05/20/21 capsule,delayed release (Nexium 24HR) buprenorphine 12 mg-naloxone 3 mg 1 film SL DAILY #28 each MDD 12mg 06/17/21 sublingual film methylphenidate HCl 36 mg 36 mg PO DAILY #28 tab MDD 36mg 06/17/21 tablet,extended release 24 hr Allergies Allergy/AdvReac Type Severity Reaction Status Date / Time No Known Allergies Allergy Verified 06/22/21 11:01 General Stated Complaint: Cellulitis JAMAL: 3 Review of Systems Narrative: Constitutional: denies fevers Eyes: denies eye pain ENT: denies ear pain, dental pain, sore throat Cardiovascular: denies chest pain, reports worsening lower extremity edema Respiratory: denies SOB, cough GI: denies vomiting, reports abdominal distention, abdominal pain, diarrhea : denies flank pain MSK: denies back pain, neck pain, arthralgias, myalgias Skin: Reports rash over abdomen Neuro: denies headaches, numbness, weakness PFSH All Active Problems (Updated 06/26/21 @ 13:27 by Niki Mendez MD) Cellulitis (Acute) Anasarca (Acute) Hemidiaphragm paralysis (Acute) Swelling (Acute) Shortness of breath (Acute) Pre-diabetes (Acute) Snoring (Acute) Edema (Acute) Malaise (Acute) Joint pain (Acute) Depression (Chronic) Fatigue (Acute) Weight gain (Acute) HTN (hypertension), benign (Acute) Retained tampon (Acute) Moderate bipolar I disorder, current or most recent episode depressed, in partial remission (Chronic 07/12/12) Tobacco use disorder (Acute 07/12/12) Right medial knee pain (Acute 12/24/16) Other seasonal allergic rhinitis (Acute 01/31/15) with cough; albuterol Rx Opioid use disorder, moderate, dependence (Acute 01/01/16) Opioid dependence on agonist therapy (Acute) Bup since 07/2011; induction at [facility], transferred to [facility] when they closed 06/2012 Obesity (Acute 07/26/14) Menstrual irregularity (Acute 10/15/13) Headache (Acute 07/29/11) Generalized anxiety disorder (Acute 07/12/12) Gastroesophageal reflux disease (Acute 12/04/15) pantoprazole not effective Essential hypertension (Acute 02/26/13) Elevated testosterone level in female (Acute 10/15/13) Cervical intraepithelial neoplasia grade III with severe dysplasia (Acute 12/28/12) 09/13/06 LSIL, JOSEPHINE II 01/13 post and ant lip, JOSEPHINE III 01/13 ant lip, LEEP 01/13 JOSEPHINE II-III [id number] normal cytology 2013: co-testing Adjustment disorder with anxious mood (Acute 01/01/16) Medical History Menstrual irregularity 08/2013 Total testosterone 83 (14-76) Free testosterone0.1-1.3, nl SHBG. Nl prolactin Surgical History Tubal ligation, 2000 Family History Mother Mental disorder Depression, controlled with Prozac Daughter Epilepsy Social History Smoking/Tobacco Use Status: Current every day Tobacco Type: cigarettes Quit status: considering quitting Smoking risk assessment performed?: Yes Alcohol Intake: current Alcohol Intake frequency: 0-2 drinks per day Alcohol type: beer Drug use: Never Substance use type: does not use Household members: children Number of Children: 2 Communication Needs: None Current gender identity: female What type of physical activity do you participate in: none Seatbelt use: always Drive intox or ride w/intox driver starting gate: No Working smoke detector in home: Yes Carbon monox detector in home: Yes Do you feel safe at home: Yes Do you feel safe in your relationship?: Yes Exam Narrative Exam Narrative: Constitutional: well and [id number]-[id number], pleasant, conversing normally HENT: head atraumatic/normocephalic/normal inspection, mucous membranes moist Eyes: conjunctiva normal, sclera normal, pupils 3mm b/l Neck: no stridor, normal ROM, trachea midline Chest: normal inspection Resp: normal work of breathing, speaking in full sentences Cardio: normal rate, normal rhythm GI: abdomen soft, mild diffuse tenderness to palpation, positive distention without fluid wave, confluent erythema over lower half of abdomen, does not extend into suprapubic region or groin, no crepitus Back: normal inspection, no rash Skin: warm, dry, normal color, no rash Neuro: alert, not altered, grossly non-focal, normal tone Ext: 3+ pitting edema bilateral lower extremities, no posterior calf tenderness to palpation, many linear superficial abrasions in various stages of healing across lower extremities patient attributes to scratches/bites from her kitten Psych: normal mood, normal affect, normal behavior Course Vital Signs Vital signs: Vital Signs Temperature 36.7 C 06/22/21 10:53 Pulse 98 H 06/22/21 10:53 Respiratory Rate 16 06/22/21 10:53 Blood Pressure 111/77 06/22/21 10:53 Pulse Oximetry 93 06/22/21 10:53 Temperature 36.7 C 06/22/21 10:53 Temperature Source Skin 06/22/21 10:53 Pulse 98 H 06/22/21 10:53 Respiratory Rate 16 06/22/21 10:53 Respiratory Effort 06/22/21 10:53 Blood Pressure 111/77 06/22/21 10:53 Blood Pressure Position Supine 06/22/21 10:53 Pulse Oximetry 93 06/22/21 10:53 Oxygen Delivery Method Room Air 06/22/21 10:53 Oxygen Flow Rate 0 06/22/21 10:53 Pain Level 9 06/22/21 10:53 Lab/Test Results Lab/Test Results: Laboratory Tests Range/Units 06/22/21 06/22/21 06/22/21 11:40 11:50 11:50 WBC (4.4-10.8) 10^3/uL 12.62 H RBC (3.93-5.22) 10^6/uL 4.00 Hgb (11.2-15.7) g/dL 11.8 Hct (36.0-46.0) % 36.7 MCV (80-95) fL 91.8 MCH (27.0-33.0) pg 29.5 MCHC (32.0-36.0) % 32.2 RDW (11.7-14.6) % 17.2 H Plt Count (130-400) 10^3/uL 394 MPV (8.0-11.0) fL 9.0 Immature Gran % 0.5 Neutrophils % 76.3 Lymphocytes % 14.7 Monocytes % 7.5 Eosinophils % 0.6 Basophils % 0.4 Nucleated RBC % % 0 Absolute Neutrophils (1.2-6.7) 10^3/uL 9.63 H Absolute Lymphocytes (1.2-3.4) 10^3/uL 1.86 Absolute Monocytes (0.1-0.8) 10^3/uL 0.95 H Absolute Eosinophils (0.0-0.7) 10^3/uL 0.08 Absolute Basophils (0.0-0.2) 10^3/uL 0.05 VBG Lactate (0.6-1.4) mmol/L 4.4 H* Urine Color (Yellow) Yellow Urine Clarity (Clear) Clear Urine pH (5-8) 7.5 Ur Specific [place] (1.005-1.025) 1.020 Urine Protein (Negative) mg/dL Negative Urine Ketones (Negative) mg/dL Negative Urine Blood (Negative) Negative Urine Nitrite (Negative) Negative Urine Bilirubin (Negative) Negative Urine Urobilinogen (Up TO 0.2) EU/dL 1.0 H Ur Leukocyte Esterase (Negative) Negative Urine Glucose (Negative) mg/dL Negative POC- Test(urine) Negative
[2021-06-22 12:19] LABS: ALT 33 U/L (14-59); AST 111 U/L (15-37); Albumin 2.5 g/dL (3.4-5.0); Alkaline Phosphatase 230 U/L (46-116); Anion Gap 6.5 mmol/L (3-11); BUN 4 mg/dL (7-18); Bilirubin, Total 0.6 mg/dL (0.2-1.0); CO2 33.5 mmol/L (21.0-32.0); CREATININE 0.7 mg/dL (0.55-1.02); Calcium 8.8 mg/dL (8.5-10.1); Chloride 93 mmol/L (98-107); Glucose 101 mg/dL (74-106); Lipase 25 U/L (73-393); Magnesium 1.8 mg/dL (1.8-2.4); NT-proBNP 187 pg/mL (<300); Potassium 2.9 mmol/L (3.5-5.1); Sodium 133 mmol/L (136-145); TSH (W/Ref FT4) 5.43 uIU/mL (0.36-3.74); Total Protein 7.3 g/dL (6.4-8.2)
[2021-06-22] MEDS: Normal Saline 1,000 ML 1000 ML IV (12:20)
[2021-06-22] MEDS: Normal Saline Flush 10 ML SYR IVP (12:35)
[2021-06-22] MEDS: Omnipaque 350 MG/ML 100 ML BTL IJ (12:35)
[2021-06-22 12:36] LABS: FREE T4 1.31 ng/dL (0.76-1.46)
[2021-06-22] MEDS: POTASSIUM CHLORIDE 20 MEQ/100 ML BAG 50 MEQ IVPB ×2 (12:52→14:46)
[2021-06-22] MEDS: AMPICILLIN/SULBACTAM 3 GM in Normal Saline 100 ML IVPB (13:43)
[2021-06-22] MEDS: Normal Saline 500 ML IV (14:47)
[2021-06-22 15:09] LABS: COVID-19 PCR Negative (Negative)
[2021-06-22 15:12] LABS: Source Nasal/Nares
== END 2021-06-22 15:49 | disposition other institution (70) ==
LOC: ER 10:42
PROVIDERS: Emergency Provider Student in an Organized Health Care Education/Training Program; PCP Nurse Practitioner
DX: L03.311 Cellulitis of abdominal wall (principal); R60.1 Generalized edema; R14.0 Abdominal distension (gaseous); F10.10 Alcohol abuse, uncomplicated; E87.6 Hypokalemia; R10.10 Upper abdominal pain, unspecified
CPT/HCPCS: 36415; 80053; 81025; 83690; 87040; 87635; 96361; 96365; 96366; 99285; 74177; 81003; 83605; 83735; 83880; 84439; 84443; 85025; J0295; J3480; J3490

== ENCOUNTER 2021-07-07 18:51 | Outpatient (REF) | payer MEDICAID, SELFPAY ==
[2021-07-07 17:34] LABS: ALT 75 U/L (14-59); AST 256 U/L (15-37); Albumin 3.1 g/dL (3.4-5.0); Alkaline Phosphatase 151 U/L (46-116); Anion Gap 8.6 mmol/L (3-11); BUN 7 mg/dL (7-18); Bilirubin, Total 0.7 mg/dL (0.2-1.0); CO2 30.4 mmol/L (21.0-32.0); CREATININE 0.5 mg/dL (0.55-1.02); Calcium 9.5 mg/dL (8.5-10.1); Chloride 99 mmol/L (98-107); Glucose 96 mg/dL (74-106); Potassium 3.7 mmol/L (3.5-5.1); Sodium 138 mmol/L (136-145); Total Protein 7.3 g/dL (6.4-8.2)
[2021-07-07 22:21] LABS: HCT 36.1 % (36.0-46.0); HGB 11.2 g/dL (11.2-15.7); MCH 28.6 pg (27.0-33.0); MCV 92.3 fL (80-95); MPV 10.9 fL (8.0-11.0); Platelet Count 383 10^3/uL (130-400); RBC 3.91 10^6/uL (3.93-5.22); RDW 15.4 % (11.7-14.6); RDW-SD 52.5 fL; WBC 9.85 10^3/uL (4.4-10.8)
[2021-07-07 22:35] LABS: Hemoglobin A1C 5.6 % (<5.7)
== END 2021-07-07 18:52 | disposition home or self-care (01) ==
LOC: LBN 18:51
PROVIDERS: PCP Nurse Practitioner; Visit Provider Nurse Practitioner
DX: I10 Essential (primary) hypertension (principal); E11.9 Type 2 diabetes mellitus without complications; E66.8 Other obesity
CPT/HCPCS: 80053; 85027; 83036

== ENCOUNTER 2021-08-26 15:11 | Outpatient (REF) | payer MEDICAID, SELFPAY ==
[2021-08-26 19:44] LABS: ALT 21 U/L (14-59); AST 18 U/L (15-37); Albumin 3.8 g/dL (3.4-5.0); Alkaline Phosphatase 95 U/L (46-116); Anion Gap 9.8 mmol/L (3-11); BUN 17 mg/dL (7-18); Bilirubin, Total 0.5 mg/dL (0.2-1.0); CO2 29.2 mmol/L (21.0-32.0); CREATININE 1.1 mg/dL (0.55-1.02); Calcium 9.6 mg/dL (8.5-10.1); Chloride 100 mmol/L (98-107); Estimated GFR 53.71 (mL/min/1.73m2); Glucose 100 mg/dL (74-106); Potassium 4.2 mmol/L (3.5-5.1); Sodium 139 mmol/L (136-145); TSH (W/Ref FT4) 2.77 uIU/mL (0.36-3.74); Total Protein 7.2 g/dL (6.4-8.2)
[2021-08-28 14:06] LABS: ANA Interpretation Positive (Negative); ANA Titer Pattern 1:80 Speckled
== END 2021-08-26 15:12 | disposition home or self-care (01) ==
LOC: LBN 15:11
PROVIDERS: PCP Nurse Practitioner; Visit Provider Nurse Practitioner
DX: R53.83 Other fatigue (principal); I10 Essential (primary) hypertension; R79.89 Other specified abnormal findings of blood chemistry
CPT/HCPCS: 80053; 84443; 86038

== ENCOUNTER 2021-10-26 16:59 | Outpatient (REF) | payer MEDICAID, SELFPAY ==
[2021-10-28 08:00] LABS: IgE 53 IU/mL (<158)
[2021-10-28 08:53] LABS: IgA 151 mg/dL (85-499); IgG 991 mg/dL (610-1,616); IgM 139 mg/dL (35-242)
[2021-10-28 10:51] LABS: HIV-1/2 Ag & Ab Screen Negative (Negative)
== END 2021-10-26 17:00 | disposition home or self-care (01) ==
LOC: LBN 16:59
PROVIDERS: PCP Nurse Practitioner; Visit Provider Student in an Organized Health Care Education/Training Program
DX: J18.9 Pneumonia, unspecified organism (principal)
CPT/HCPCS: 82784; 87389; 82785; 82787

== ENCOUNTER → 2021-11-03 01:39 | Outpatient (CLI) | payer MEDICAID, SELFPAY ==
--- NOTE | 2021-11-03 15:02 | DI.CT_ITS ---
Exam(s) CT CHEST WO EXAM: CT CHEST WO CLINICAL HISTORY: f/u Atelectasis vs pneumonia,F/U ABNL CHEST CT, R93.89. TECHNIQUE: Imaging protocol: Axial computed tomography images were obtained and coronal and sagittal reformatted images were created and reviewed. COMPARISON: CT CT CHEST PE CTA from 02/18/[address] ABDOMEN PELVIS W from 06/22/[address] ANGIOGRAPHY PE CHEST from 07/02/2021 FINDINGS: Tracheobronchial tree: Patent where visualized. Pulmonary parenchyma: The infiltrates have nearly completely resolved. There is a small infiltrate s een in the left lingula with associated bronchiectasis likely reflecting scarring. There is a very s mall infiltrate seen in the medial aspect of the right middle lobe. There is atelectasis in the left lung base. No focal consolidating areas are seen. Mild centrilobular emphysematous changes are pre sent. Mediastinum and Maty: No dominant adenopathy or fluid collection. The esophagus is unremarkable. Thyroid gland: There is a stable peripherally calcified nodule in the right lobe of the thyroid gland . It measures 1 cm. It is unchanged compared to 02/18/2021. Nonemergent thyroid ultrasound may be obtained for further evaluation. Pleura: No effusion or pneumothorax. Heart: The heart is not dilated. Coronary artery calcifications are present. No pericardial effusion . Aorta: Thoracic aorta non-dilated. Atherosclerosis is present. Upper abdomen: Unremarkable. Lymph nodes: Within normal limits. Soft tissues: Unremarkable. Bones:Within normal limits for the patient's age. IMPRESSION: 1. Resolution of the pulmonary infiltrates since 07/02/2021. 2. Small infiltrate with associated bronchiectasis in the left lingula likely reflecting scarring. 3. Dependent atelectasis seen in the right lower lobe. 4. Right thyroid nodule. Nonemergent thyroid ultrasound is recommended for further evaluation. RADIATION DOSE DELIVERED: 683.52mGy.cm Total DLP 683.52mGy.cm Total DLP DATA REPOSITORY: All CT scans at this facility are submitted to the National Radiology Data Registry (NRDR) Dose Index Registry (DIR) with the [employer] ([employer]). RADIATION OPTIMIZATION: All CT scans at this facility use at least one of these dose optimization te chniques: automated exposure control; mA and/or kV adjustment per patient size (includes targeted exa ms where dose is matched to clinical indication); or iterative reconstruction.
== END ==
PROVIDERS: PCP Nurse Practitioner; Visit Provider Student in an Organized Health Care Education/Training Program
DX: R91.8 Other nonspecific abnormal finding of lung field (principal); J98.11 Atelectasis; E04.1 Nontoxic single thyroid nodule; J47.9 Bronchiectasis, uncomplicated
CPT/HCPCS: 71250

== ENCOUNTER 2021-11-30 04:40 | Outpatient (CLI) | payer MEDICAID, SELFPAY ==
[2021-11-30 16:17] LABS: BE 4 mmol/L (-2-3); HCO3 28 mmol/L (22-26); Site Right Radial; pCO2 41 mmHg (35-45); pH 7.44 (7.35-7.45); pO2 82 mmHg (80-105); sO2 97 % (95-98); tCO2 25 mmol/L (23-27)
[2021-11-30] MEDS: Albuterol HFA 18 GM 200 PUFF INH IH (16:38)
[2021-11-30] MEDS: Inhaler, Assist Device 1 EACH MC (16:38)
--- NOTE | 2021-12-08 18:22 | W.PFT ---
Date of service: 11/30/21 Time of Service: 15:39 Pulmonary Function Test Result Requesting Provider Duchene Indications: Hypoxia Interpretation Spirometry: There is no airflow limitation. there is no significant bronchodilator response. Lung Volumes: Lung volumes are normal. Diffusion Capacity: Diffusion is normal. Airway Pressure: Airways resistance is normal. Impression Normal pulmonary function testing. Clinical Correlation therefore is recommended.
== END 2021-11-30 04:41 | disposition home or self-care (01) ==
LOC: RT 04:40
PROVIDERS: PCP Nurse Practitioner; Visit Provider Student in an Organized Health Care Education/Training Program
DX: J96.91 Respiratory failure, unspecified with hypoxia (principal)
CPT/HCPCS: 82805; 94060; 94618; 94726; 94729; 36600

== ENCOUNTER 2021-11-30 15:51 | Outpatient (REF) | payer MEDICAID, SELFPAY | END 2021-11-30 15:52 | disposition home or self-care (01) | LOC: LBN 15:51 | PROVIDERS: PCP Nurse Practitioner; Visit Provider Student in an Organized Health Care Education/Training Program ==

== ENCOUNTER 2022-01-12 13:30 | Outpatient (CLI) | payer MEDICAID, SELFPAY ==
--- NOTE | 2022-01-12 13:30 | RT.EKG_ITS ---
APPROVED REPORT Exam: Resting ECG Reason for Exam: on [facility] Patient Location: O HR:66 bpm ECG Measurements Heart Rate 66 AXIS ND 240 P -22 QRSd 93 QRS 21 QT 403 T 42 QTc 423 Conclusion Sinus rhythm...normal P axis, V-rate 50- 99 Prolonged ND interval...ND >210, V-rate 50- 90 Low voltage, precordial leads...precordial leads <1.0mV
== END 2022-01-12 13:31 | disposition home or self-care (01) ==
LOC: DI.KIM 13:31
PROVIDERS: PCP Nurse Practitioner; Visit Provider Nurse Practitioner
DX: Z51.81 Encounter for therapeutic drug level monitoring (principal); R94.31 Abnormal electrocardiogram [ECG] [EKG]
CPT/HCPCS: 93010

== ENCOUNTER 2022-01-29 15:34 | Outpatient (REF) | payer MEDICAID, SELFPAY ==
[2022-02-03 09:07] LABS: IgE 53 IU/mL (<158)
[2022-02-05 16:44] LABS: Epicoccum purpurascens IgE <0.35 kU/L
[2022-02-08 14:50] LABS: Alternaria Tenuis IgE <0.35 kU/L; Ascaris IgE <0.35 kU/L; Aspergillus Fumigatus IgE <0.35 kU/L; Aspergillus Niger, IgE <0.35 kU/L; Candida Albicans (Monilia),IgE <0.35 kU/L; Cockroach IgE 0.59 kU/L; Curvularia Lunata, IgE <0.35 kU/L; D Farinae IgE <0.35 kU/L; D Pteronyssinus IgE <0.35 kU/L; Fusarium moniliforme, IgE <0.35 kU/L (<0.35); Penicillium chrysogenum IgE <0.35 kU/L; Stemphyllium IgE <0.35 kU/L
[2022-02-08 15:09] LABS: Cheese, Mold IgE <0.35 kU/L
[2022-02-08 21:46] LABS: Botrytis Cinerea IgE <0.35 kU/L
== END 2022-01-29 15:35 | disposition home or self-care (01) ==
LOC: LBN 15:34
PROVIDERS: PCP Nurse Practitioner; Visit Provider Student in an Organized Health Care Education/Training Program
DX: J67.8 Hypersensitivity pneumonitis due to other organic dusts (principal)
CPT/HCPCS: 86003; 82785

== ENCOUNTER 2022-11-05 00:20 | Outpatient (CLI) | payer MEDICAID, SELFPAY ==
--- NOTE | 2022-11-05 07:15 | DI.US_ITS ---
Exam(s) US THYROID EXAM: US THYROID CLINICAL HISTORY: f/u thyroid nodule,E04.1. TECHNIQUE: Ultrasound thyroid performed using standard protocol. COMPARISON: CT CT CHEST PE CTA from 02/18/[address] CHEST WO from 11/03/2021 FINDINGS: ISTHMUS: 4 mm RIGHT LOBE: Size: 5.3 x 1.7 x 2.1 cm Echogenicity: Normal. Vascularity: Normal. Nodules: Nodule with heavy peripheral calcification measuring 1.4 x 1.0 x 1.4 cm. It appears unchang ed in size compared with prior CT examination. Due to the heavy calcification, composition and echog enicity cannot be determined. Total points 5, TR 4 LEFT LOBE: Size: 5.0 x 1.8 x 1.7 cm Echogenicity: Normal. Vascularity: Normal. Nodules: None. OTHER FINDINGS: None. IMPRESSION: Peripherally calcified nodule appears unchanged compared with 2020 and [address]s, consistent wit h a benign nodule. DATA REPOSITORY:
== END 2022-11-05 00:40 ==
LOC: DI 00:20
PROVIDERS: PCP Nurse Practitioner; Visit Provider Nurse Practitioner
DX: E04.1 Nontoxic single thyroid nodule (principal)
CPT/HCPCS: 76536

== ENCOUNTER 2022-12-06 13:28 | Outpatient (CLI) | payer MEDICAID, SELFPAY ==
--- NOTE | 2022-12-06 13:15 | RT.EKG_ITS ---
APPROVED REPORT Exam: Resting ECG Reason for Exam: on [facility] Patient Location: O HR:69 bpm ECG Measurements Heart Rate 69 AXIS CA 194 P -20 QRSd 87 QRS 14 QT 420 T 34 QTc 450 Conclusion Sinus rhythm...normal P axis, V-rate 50- 99 Low voltage, precordial leads...precordial leads <1.0mV Abnormal R-wave progression, early transition...QRS area>0 in V2 Otherwise normal ECG
== END 2022-12-06 13:29 | disposition home or self-care (01) ==
LOC: DI.KIM 13:29
PROVIDERS: PCP Nurse Practitioner; Visit Provider Nurse Practitioner
DX: Z51.81 Encounter for therapeutic drug level monitoring (principal)
CPT/HCPCS: 93010

== ENCOUNTER 2022-12-14 03:53 | Outpatient (CLI) | payer MEDICAID, SELFPAY ==
[2022-12-14 08:34] LABS: HCT 35.6 % (36.0-46.0); HGB 12.1 g/dL (11.2-15.7); MCH 31.8 pg (27.0-33.0); MCV 93 fL (80-95); MPV 9.5 fL (8.0-11.0); Platelet Count 310 10^3/uL (130-400); RBC 3.81 10^6/uL (3.93-5.22); RDW 12.5 % (11.7-14.6); RDW-SD 43.2 fL; WBC 10.96 10^3/uL (4.4-10.8)
[2022-12-14 08:42] LABS: Hemoglobin A1C 5.2 % (<5.7)
[2022-12-14 09:18] LABS: ALT 23 U/L (14-59); AST 27 U/L (15-37); Albumin 3.6 g/dL (3.4-5.0); Alkaline Phosphatase 73 U/L (46-116); Anion Gap 6.8 mmol/L (3-11); BUN 6 mg/dL (7-18); Bilirubin, Total 0.4 mg/dL (0.2-1.0); CO2 33.2 mmol/L (21.0-32.0); CREATININE 1.1 mg/dL (0.55-1.02); Calcium 9.2 mg/dL (8.5-10.1); Calculated LDL 118 mg/dL (<100); Chloride 96 mmol/L (98-107); Cholesterol 228 mg/dL (<200); Estimated GFR 62.76 (mL/min/1.73m2); Glucose 104 mg/dL (74-106); HDL Cholesterol 74 mg/dL (40-60); Potassium 3.5 mmol/L (3.5-5.1); Sodium 136 mmol/L (136-145); TSH (W/Ref FT4) 1.57 uIU/mL (0.36-3.74); Total Protein 7.2 g/dL (6.4-8.2); Triglyceride 181 mg/dL (<150)
== END 2022-12-14 03:54 | disposition home or self-care (01) ==
LOC: LBO 03:53
PROVIDERS: PCP Nurse Practitioner; Visit Provider Nurse Practitioner
DX: I10 Essential (primary) hypertension (principal); R73.03 Prediabetes; R53.83 Other fatigue; R63.5 Abnormal weight gain; E11.9 Type 2 diabetes mellitus without complications
CPT/HCPCS: 36415; 80053; 80061; 85027; 83036; 84443

== ENCOUNTER → 2023-04-05 02:03 | Outpatient (CLI) | payer MEDICAID, SELFPAY ==
--- NOTE | 2023-04-05 08:02 | DI.MAMMO_ITS ---
Exam(s) MAMMO SCREENING EXAM: MAMMO SCREENING CLINICAL HISTORY: screening,z12.39. TECHNIQUE: Bilateral full field digital CC and MLO mammographic images were obtained with 3D tomosyn thesis and utilizing computer aided detection (CAD). COMPARISON: None. This is a baseline mammogram on this 48-year-old FINDINGS: There are no spiculated masses nor malignant appearing microcalcification groups. There is no significant architectural distortion nor skin thickening-retraction. IMPRESSION: No radiographic evidence of malignancy. BI-RADS Category 1 - Negative Breast Density - Category B - Scattered areas of fibroglandular density Breast density Category C or D implies that the patient has dense breast tissue. Dense breast tissue can make it harder to find cancer on a mammogram. Dense breast tissue is also associated with an incr eased risk of breast cancer. This information about the result of the mammogram report was provided to the patient to raise their awareness. Use this report when you speak with the patient about their risks for breast cancer, which includes their family history. At that time, you may recommend additional screening tests (Ultrasoun d or MRI) as these tests may add significant information. A negative radiographic report should not delay biopsy if a dominant or clinically suspicious mass is present. Up to ten percent of cancers are not identified on mammography. A negative report may reinforce clinical impression. Adenosis and dense breasts may obscure an underlying neoplasm. False positive reports average 6 to 10%. Patient will receive a letter notifying them of these results.
== END ==
PROVIDERS: PCP Nurse Practitioner; Visit Provider Nurse Practitioner
DX: Z12.31 Encounter for screening mammogram for malignant neoplasm of breast (principal)
CPT/HCPCS: 77063; 77067

== ENCOUNTER 2023-07-13 04:53 | Outpatient (CLI) | payer MEDICAID, SELFPAY ==
[2023-07-13 15:41] LABS: Abs Immature Grans 0.03 10^3/uL (0.0-0.06); Absolute Basophil Count 0.06 10^3/uL (0.0-0.2); Absolute Eosinophil Count 0.02 10^3/uL (0.0-0.7); Absolute Lymphocyte Count 1.66 10^3/uL (1.2-3.4); Absolute Monocyte Count 0.68 10^3/uL (0.1-0.8); Absolute Neutrophil Count 5.76 10^3/uL (1.2-6.7); Basophils % 0.7; Eosinophils % 0.2; HCT 37.2 % (36.0-46.0); HGB 12.2 g/dL (11.2-15.7); Immature Grans % 0.4; Lymphocytes % 20.2; MCH 28.8 pg (27.0-33.0); MCHC 32.8 % (32.0-36.0); MCV 88 fL (80-95); MPV 9.2 fL (8.0-11.0); Monocytes % 8.3; Neutrophils % 70.2; Platelet Count 331 10^3/uL (130-400); RBC 4.24 10^6/uL (3.93-5.22); RDW 14.4 % (11.7-14.6); RDW-SD 46.5 fL; WBC 8.21 10^3/uL (4.4-10.8)
[2023-07-13 16:56] LABS: ALT 44 U/L (14-59); AST 72 U/L (15-37); Albumin 3.4 g/dL (3.4-5.0); Alkaline Phosphatase 88 U/L (46-116); Anion Gap 9.8 mmol/L (3-11); BUN 9 mg/dL (7-18); Bilirubin, Total 0.5 mg/dL (0.2-1.0); CO2 33.2 mmol/L (21.0-32.0); CREATININE 0.7 mg/dL (0.55-1.02); Calcium 9.4 mg/dL (8.5-10.1); Chloride 93 mmol/L (98-107); Estimated GFR 107.28 (mL/min/1.73m2); Glucose 123 mg/dL (74-106); Potassium 3.4 mmol/L (3.5-5.1); Sodium 136 mmol/L (136-145); Total Protein 7.3 g/dL (6.4-8.2)
== END 2023-07-13 04:54 | disposition home or self-care (01) ==
LOC: LBO 04:53
PROVIDERS: Absent Provider Nurse Practitioner; PCP Nurse Practitioner; Referring Provider Nurse Practitioner; Visit Provider Nurse Practitioner
DX: R60.0 Localized edema (principal); I10 Essential (primary) hypertension; R53.83 Other fatigue; K21.9 Gastro-esophageal reflux disease without esophagitis; R73.03 Prediabetes
CPT/HCPCS: 36415; 80053; 85025

== ENCOUNTER 2023-10-11 05:21 | Outpatient (CLI) | payer MEDICAID, SELFPAY ==
[2023-10-11 09:24] LABS: Hemoglobin A1C 6.2 % (<5.7)
[2023-10-11 09:49] LABS: ALT 38 U/L (14-59); AST 30 U/L (15-37); Albumin 3.3 g/dL (3.4-5.0); Alkaline Phosphatase 88 U/L (46-116); Anion Gap 8.6 mmol/L (3-11); BUN 8 mg/dL (7-18); Bilirubin, Total 0.3 mg/dL (0.2-1.0); CO2 40.4 mmol/L (21.0-32.0); Calcium 8.5 mg/dL (8.5-10.1); Calculated LDL 133 mg/dL (<100); Chloride 91 mmol/L (98-107); Cholesterol 223 mg/dL (<200); Estimated GFR 69.93 (mL/min/1.73m2); Glucose 130 mg/dL (74-106); HDL Cholesterol 51 mg/dL (40-60); Sodium 140 mmol/L (136-145); TSH (W/Ref FT4) 1.89 uIU/mL (0.36-3.74); Total Protein 7.6 g/dL (6.4-8.2); Triglyceride 196 mg/dL (<150)
[2023-10-11 10:12] LABS: Potassium 2.5 mmol/L (3.5-5.1)
== END 2023-10-11 05:22 | disposition home or self-care (01) ==
LOC: LBO 05:21
PROVIDERS: PCP Nurse Practitioner; Visit Provider Nurse Practitioner
DX: I10 Essential (primary) hypertension; R73.03 Prediabetes; E78.5 Hyperlipidemia, unspecified
CPT/HCPCS: 36415; 80053; 80061; 83036; 84443

== ENCOUNTER 2023-10-14 09:18 | Outpatient (CLI) | payer MEDICAID, SELFPAY ==
[2023-10-14 10:11] LABS: Potassium 2.7 mmol/L (3.5-5.1)
== END 2023-10-14 09:19 | disposition home or self-care (01) ==
LOC: LBO 09:19
PROVIDERS: PCP Nurse Practitioner; Visit Provider Nurse Practitioner
DX: E87.6 Hypokalemia (principal)
CPT/HCPCS: 36415; 84132

== ENCOUNTER 2023-10-19 10:44 | Outpatient (CLI) | payer MEDICAID, SELFPAY ==
[2023-10-19 11:21] LABS: Anion Gap 7.8 mmol/L (3-11); BUN 11 mg/dL (7-18); CO2 32.2 mmol/L (21.0-32.0); Chloride 97 mmol/L (98-107); Estimated GFR 69.93 (mL/min/1.73m2); Glucose 137 mg/dL (74-106); Potassium 3.3 mmol/L (3.5-5.1); Sodium 137 mmol/L (136-145)
== END 2023-10-19 10:45 | disposition home or self-care (01) ==
LOC: LBO 10:44
PROVIDERS: PCP Nurse Practitioner; Visit Provider Nurse Practitioner
DX: E87.6 Hypokalemia (principal)
CPT/HCPCS: 36415; 80048

== ENCOUNTER 2024-02-28 18:02 | Outpatient (REF) | payer MEDICAID, SELFPAY ==
[2024-02-28 20:33] LABS: ALT 109 U/L (14-59); AST 135 U/L (15-37); Albumin 3.4 g/dL (3.4-5.0); Alkaline Phosphatase 115 U/L (46-116); Anion Gap 9.1 mmol/L (3-11); BUN 14 mg/dL (7-18); Bilirubin, Total 0.39 mg/dL (0.2-1.0); CO2 32.9 mmol/L (21.0-32.0); CREATININE 0.9 mg/dL (0.55-1.02); Calcium 9.3 mg/dL (8.5-10.1); Chloride 94 mmol/L (98-107); Estimated GFR 79.35 (mL/min/1.73m2); Glucose 115 mg/dL (74-106); Potassium 3.2 mmol/L (3.5-5.1); Sodium 136 mmol/L (136-145); Total Protein 7.5 g/dL (6.4-8.2)
[2024-02-28 20:36] LABS: Abs Immature Grans 0.08 10^3/uL (0.0-0.06); Absolute Eosinophil Count 0.12 10^3/uL (0.0-0.7); Absolute Lymphocyte Count 1.66 10^3/uL (1.2-3.4); Absolute Monocyte Count 0.71 10^3/uL (0.1-0.8); Basophils % 0.3 %; Eosinophils % 0.7 %; HCT 33.3 % (36.0-46.0); HGB 10.5 g/dL (11.2-15.7); Immature Grans % 0.5 %; Lymphocytes % 9.6 %; MCH 25.5 pg (27.0-33.0); MCHC 31.5 % (32.0-36.0); MCV 81 fL (80-95); Monocytes % 4.1 %; Neutrophils % 84.8 %; Platelet Count 346 10^3/uL (130-400); RBC 4.11 10^6/uL (3.93-5.22); RDW 17.1 % (11.7-14.6); RDW-SD 49.9 fL; WBC 17.25 10^3/uL (4.4-10.8)
[2024-02-28 20:38] LABS: Absolute Basophil Count 0.05 10^3/uL (0.0-0.2); Absolute Neutrophil Count 14.63 10^3/uL (1.2-6.7)
== END 2024-02-28 18:03 | disposition home or self-care (01) ==
LOC: LBN 18:02
PROVIDERS: PCP Nurse Practitioner; Visit Provider Nurse Practitioner
DX: F10.10 Alcohol abuse, uncomplicated (principal); I10 Essential (primary) hypertension; R79.89 Other specified abnormal findings of blood chemistry; J96.91 Respiratory failure, unspecified with hypoxia; Z86.39 Personal history of other endocrine, nutritional and metabolic disease
CPT/HCPCS: 80053; 83036; 85025

== ENCOUNTER 2024-05-08 14:00 | Outpatient (REF) | payer MEDICAID, SELFPAY ==
[2024-05-08 19:23] LABS: Abs Immature Grans 0.05 10^3/uL (0.0-0.06); Absolute Basophil Count 0.05 10^3/uL (0.0-0.2); Absolute Eosinophil Count 0.08 10^3/uL (0.0-0.7); Absolute Lymphocyte Count 1.66 10^3/uL (1.2-3.4); Absolute Monocyte Count 0.41 10^3/uL (0.1-0.8); Basophils % 0.5 %; Eosinophils % 0.8 %; HCT 33.4 % (36.0-46.0); HGB 10.2 g/dL (11.2-15.7); Immature Grans % 0.5 %; Lymphocytes % 17.6 %; MCH 23.1 pg (27.0-33.0); MCHC 30.5 % (32.0-36.0); MCV 76 fL (80-95); MPV 11.3 fL (8.0-11.0); Monocytes % 4.3 %; Neutrophils % 76.3 %; Platelet Count 292 10^3/uL (130-400); RBC 4.41 10^6/uL (3.93-5.22); RDW 16.3 % (11.7-14.6); RDW-SD 44.9 fL; WBC 9.45 10^3/uL (4.4-10.8)
[2024-05-08 19:48] LABS: ALT 16 U/L (14-59); AST 18 U/L (15-37); Albumin 3.3 g/dL (3.4-5.0); Alkaline Phosphatase 83 U/L (46-116); Anion Gap 4.5 mmol/L (3-11); BUN 9 mg/dL (7-18); Bilirubin, Total 0.36 mg/dL (0.2-1.0); CO2 33.5 mmol/L (21.0-32.0); CREATININE 0.8 mg/dL (0.55-1.02); Calcium 9.2 mg/dL (8.5-10.1); Chloride 101 mmol/L (98-107); Estimated GFR 90.83 (mL/min/1.73m2); Glucose 115 mg/dL (74-106); Potassium 3.5 mmol/L (3.5-5.1); Sodium 139 mmol/L (136-145); Total Protein 7.2 g/dL (6.4-8.2)
== END 2024-05-08 14:01 | disposition home or self-care (01) ==
LOC: LBN 14:00
PROVIDERS: PCP Nurse Practitioner; Visit Provider Nurse Practitioner
DX: I27.20 Pulmonary hypertension, unspecified (principal); R73.03 Prediabetes; I10 Essential (primary) hypertension
CPT/HCPCS: 80053; 85025

== ENCOUNTER 2024-08-06 02:05 | Outpatient (CLI) | payer MEDICAID, SELFPAY ==
[2024-08-06] MEDS: Inhaler, Assist Device 1 EACH MC (11:12)
[2024-08-06] MEDS: Levalbuterol HFA 15 GM INH 4 PUFF IH (11:13)
--- NOTE | 2024-08-07 16:13 | W.PFT ---
Date of service: 08/06/24 Time of Service: 10:14 Pulmonary Function Test Result Indications: Dyspnea Interpretation Spirometry: No airflow limitation. No significant bronchodilator response. Lung Volumes: Normal lung volumes Diffusion Capacity: Reduced diffusion Airway Pressure: Normal airways resistance Impression Reduced diffusion Clinical Correlation therefore is recommended.
== END 2024-08-06 02:06 | disposition home or self-care (01) ==
LOC: RT 02:05
PROVIDERS: PCP Nurse Practitioner; Visit Provider Student in an Organized Health Care Education/Training Program
DX: R06.00 Dyspnea, unspecified (principal); F17.210 Nicotine dependence, cigarettes, uncomplicated
CPT/HCPCS: 94060; 94618; 94726; 94729